=== PATIENT | female | born 1990 | race African-American/Black ===

== ENCOUNTER 2017-07-06 06:34 | Inpatient (IN) | payer MEDICAID, OTHER ==
[2017-07-06] VITALS (48 sets, daily range): BP systolic 88–131; BP diastolic 38–84; PULSE 93–161; RESP 16–18; TEMP 97.8–99.6
[~2017-07-06] VITALS: Ht 152.4 cm; Wt 83.0 kg
[~2017-07-06 06:34] MED LIST: FERRTAB2 PO; PREN1CAP33 PO
[2017-07-06] MEDS ORDERED: LACTATED RINGER'S 1000 ML INJ 1,000 ML IV PRN (07:25)
[2017-07-06] MEDS: LACTATED RINGER'S 1000 ML INJ 1,000 ML IV SCH ×2 (07:25→12:13)
--- NOTE | 2017-07-06 07:25 | PD ---
HPI Chief Complaint Contractions Date Seen: Jul 06, 2017 Time Seen: 07:19 Travel History International Travel<30 Days: No Contact w/Intl Traveler<30Days: No Known Affected Area: No History of Present Illness HPI 26-year-old who is at 38 weeks and 6 days comes in complaining of contractions since 11 PM last night that have worsened in intensity. Patient denies vaginal bleeding or rupture membranes. She is group B strep negative and presently she is obtaining care with the [facility]. Weeks Gestation: 38 Para: 0 : 1 History Past Medical History Medical History: Denies Significant Hx Past Surgical History Surgical History: No Previous Surgery Family History Family History: Negative Social History Alcohol Use: No Tobacco Use: No Substance Abuse: No Allergies-Medications (Allergen,Severity, Reaction): Coded Allergies: No Known Allergies (Verified , 07/04/17) Home Meds Active Scripts Multi-Vit/Iron-Folic [id number] C (Ferralet) 90-1-0.012-120 mg Tab, 1 TAB PO DAILY, #30 BOTTLE 6 Refills Prov:Olga Boles 05/01/17 Vit W/ Fe Polysacch C (Vitafol Fe+ 90-1-200 & 50 mg) 1 Cap Cap, 1 TAB PO DAILY, #30 BOTTLE 11 Refills Prov:Olga Boles 04/11/17 Review of Systems Except as stated in HPI: all other systems reviewed are Neg Physical Exam Narrative GENERAL: Well-nourished, well-developed patient. SKIN: Warm and dry. HEAD: Normocephalic and atraumatic. EYES: No scleral icterus. No injection or drainage. ENT: No nasal drainage noted. Mucous membranes pink. Airway patent. NECK: Supple, trachea midline. No JVD. CARDIOVASCULAR: Regular rate and rhythm without murmurs, gallops, or rubs. RESPIRATORY: Breath sounds equal bilaterally. No accessory muscle use. ABDOMEN/GI: Abdomen soft, non-tender, bowel sounds present, no rebound, no guarding Gravid to [40-] weeks size Fundal Height: [-] GENITOURINARY: External Genitalia: intact and normal in appearance BUS glands: nl Cervix: mid Dilatation: 3-4 Effacement: 100 Station: -2 Presentation: vtx Membranes: [intact Uterine Contractions: q5 min FHT's: Category: 1 Baseline: 140 Reactive: mod Variability: mod Decels: absent EXTREMITIES: No cyanosis or edema. BACK: Nontender without obvious deformity. No CVA tenderness. NEUROLOGICAL: Awake and alert. Motor and sensory grossly within normal limits. Five out of 5 muscle strength in all muscle groups. Normal speech. Data Data Vital Signs Reviewed: Yes Group B Strep: Negative MDM Medical Record Reviewed: Yes Plan 26yo at 38w6d here with regular contractions at 3-4cm Admit to labor Undecided regarding epidural Diagnosis Diagnosis: Primary Impression: 38 weeks gestation of Additional Impression: Slow slope active phase of labor Kiki Martinez MD Jul 06, 2017 07:25
--- NOTE | 2017-07-06 07:28 | HHI.HP ---
History & Physical H&P HPI Chief Complaint Contractions Date Seen: Jul 06, 2017 Time Seen: 07:19 Travel History International Travel<30 Days: No Contact w/Intl Traveler<30Days: No Known Affected Area: No History of Present Illness HPI 26-year-old who is at 38 weeks and 6 days comes in complaining of contractions since 11 PM last night that have worsened in intensity. Patient denies vaginal bleeding or rupture membranes. She is group B strep negative and presently she is obtaining care with the [facility]. Weeks Gestation: 38 Para: 0 : 1 History (Limited) History Past Medical History Medical History: Denies Significant Hx Past Surgical History Surgical History: No Previous Surgery Family History Family History: Negative Social History Alcohol Use: No Tobacco Use: No Substance Abuse: No Allergies-Medications Allergies-Medications (Allergen,Severity, Reaction): Coded Allergies: No Known Allergies (Verified , 07/04/17) Home Meds Active Scripts Multi-Vit/Iron-Folic [id number] C (Ferralet) 90-1-0.012-120 mg Tab, 1 TAB PO DAILY, #30 BOTTLE 6 Refills Prov:Olga Boles 05/01/17 Vit W/ Fe Polysacch C (Vitafol Fe+ 90-1-200 & 50 mg) 1 Cap Cap, 1 TAB PO DAILY, #30 BOTTLE 11 Refills Prov:Olga Boles 04/11/17 ROS Review of Systems Except as stated in HPI: all other systems reviewed are Neg Physical Exam Physical Exam Narrative GENERAL: Well-nourished, well-developed patient. SKIN: Warm and dry. HEAD: Normocephalic and atraumatic. EYES: No scleral icterus. No injection or drainage. ENT: No nasal drainage noted. Mucous membranes pink. Airway patent. NECK: Supple, trachea midline. No JVD. CARDIOVASCULAR: Regular rate and rhythm without murmurs, gallops, or rubs. RESPIRATORY: Breath sounds equal bilaterally. No accessory muscle use. ABDOMEN/GI: Abdomen soft, non-tender, bowel sounds present, no rebound, no guarding Gravid to [40-] weeks size Fundal Height: [-] GENITOURINARY: External Genitalia: intact and normal in appearance BUS glands: nl Cervix: mid Dilatation: 3-4 Effacement: 100 Station: -2 Presentation: vtx Membranes: [intact Uterine Contractions: q5 min FHT's: Category: 1 Baseline: 140 Reactive: mod Variability: mod Decels: absent EXTREMITIES: No cyanosis or edema. BACK: Nontender without obvious deformity. No CVA tenderness. NEUROLOGICAL: Awake and alert. Motor and sensory grossly within normal limits. Five out of 5 muscle strength in all muscle groups. Normal speech. Data Data Data Vital Signs Reviewed: Yes Group B Strep: Negative MDM MDM Medical Record Reviewed: Yes Plan 26yo at 38w6d here with regular contractions at 3-4cm Admit to labor Undecided regarding epidural Diagnosis Diagnosis: Primary Impression: 38 weeks gestation of Additional Impression: Slow slope active phase of labor Kiki Martinez MD Jul 06, 2017 07:28
[2017-07-06] MEDS ORDERED: MINERAL OIL 10 ML VIAL TOPICAL PRN (07:30)
[2017-07-06] MEDS ORDERED: CITRIC ACID-SODIUM CITRATE LIQ 30 ML UDC PO SCH (07:30)
[2017-07-06] MEDS ORDERED: LIDOCAINE HCL 1% 50 ML VIAL I-DERMAL PRN (07:30)
[2017-07-06] MEDS ORDERED: LIDOCAINE HCL 1% 50 ML VIAL INFIL PRN (07:30)
[2017-07-06] MEDS ORDERED: ONDANSETRON HCL 4 MG/2 ML VIAL IV PRN (07:30)
[2017-07-06] MEDS ORDERED: OXYTOCIN 30 UNITS-500ML PREMIX 500 ML IV ONE (07:30)
[2017-07-06] MEDS ORDERED: SODIUM CHLORID 0.9% 500 ML INJ 500 ML IV PRN (07:30)
[2017-07-06] MEDS ORDERED: SODIUM CHLOR 0.9% 1000 ML INJ 1,000 ML IV PRN (07:45)
[2017-07-06 07:56] LABS: BASOPHIL % 0.2 % (0.0-2.0); HEMATOCRIT 35.6 % (35.0-46.0); HEMO FLAGS DIFF FINAL; LYMPH % 9.7 % (9.0-44.0); LYMPHOCYTE # 1.2 TH/MM3 (1.0-4.8); MEAN CORPUSCULAR HEMOGLOBIN 31.4 PG (27.0-34.0); MEAN CORPUSCULAR HGB CONC 33.7 % (32.0-36.0); MONO % 4.2 % (0.0-8.0); NEUT % 85.9 % (16.0-70.0); PLATELET COUNT 302 TH/MM3 (150-450); RED BLOOD COUNT 3.83 MIL/MM3 (4.00-5.30); RED CELL DISTRIBUTION WIDTH 13.4 % (11.6-17.2); WHITE BLOOD COUNT 12.8 TH/MM3 (4.0-11.0)
[2017-07-06] MEDS ORDERED: fentaNYL 2MCG-BUPIV 0.125% 100 ML EPIDURAL SCH (10:30)
[2017-07-06] MEDS ORDERED: ePHEDrine/NS 25 MG/5 ML SYR ONE (10:30)
[2017-07-06] MEDS ORDERED: NO SYSTEM NARCOTICS PRN (10:30)
[2017-07-06] MEDS ORDERED: DO NOT ADMINISTER ANTICOAGULANTS PRN (10:30)
[2017-07-06] MEDS ORDERED: fentaNYL 2MCG-BUPIV 0.125% INJ 100 ML ONE (10:30)
--- NOTE | 2017-07-06 10:40 | PD.LABORPN ---
Subjective Subjective Patient seen and examined. No current complaints. Vital signs stable. AROM performed without complications. Anesthesia notified and patient desires epidural at this time. Continue with routine antepartum care. (Allan Dumont MD R2) Objective Vital Signs Vital Signs Date Time Temp Pulse Resp B/P (MAP) Pulse Ox O2 Delivery O2 Flow Rate FiO2 07/06/17 08:56 101 131/84 (100) 07/06/17 07:00 97.8 Objective Pelvic Exam: Cervix: Midposition Dilatation: 5-6 cm Effacement: 100% Station: -1 Presentation: Vertex Membranes: AROM FHT's: Category: 1 Baseline: 120s Reactive: Positive Variability: Moderate Decels: None Weeks Gestation: 38 Gest Age Assessed Date: Jul 06, 2017 Gest Age Assessed Time: 10:33 Pt started active labor?: Yes Active labor start date: Jul 06, 2017 Active labor start time: 08:00 Medical induction of labor?: No Artificial rupture of membrane: Yes Artificial ROM date: Jul 06, 2017 Artifical ROM time: 10:34 (Allan Dumont MD R2) Assessment/Plan Assessment and Plan 26-year-old who is at 38 weeks and 6 days currently in active labor -Cervical exam: 5-6 cm, 100%, -1 -AROM completed with clear fluid -Patient desires epidural, anesthesia notified -Category 1 heart tracing, reassuring -Patient without complaints -Continue routine antepartum care DW: Dr. Allen (Allan Dumont MD R2) Assessment and Plan Patient seen and evaluated with resident under direct supervision, agree with assessment and plan. (Jose Allen MD) Allan Dumont MD R2 Jul 06, 2017 10:40 Jose Allen MD Jul 06, 2017 10:48
[2017-07-06] MEDS ORDERED: ePHEDrine/NS 25 MG/5 ML SYR IV PRN (11:15)
[2017-07-06 13:12] LABS: BLOOD, URINE NEG (NEG); COMMENT (UR) CULT NOT INDICATED; CULTURE IF INDICATED CULT NOT INDICATED; GLUCOSE,URINE NEG (NEG); KETONE, URINE NEG (NEG); MUCUS URINE FEW /lpf (OCC); NITRITE,URINE NEG (NEG); PH, URINE 6.5 (5.0-8.5); SQUAMOUS EPITHELIAL CELL URINE 2 /hpf (0-5); URINE COLOR YELLOW (YELLW/STRAW)
[2017-07-06] MEDS ORDERED: OXYTOCIN 30 UNITS-500ML PREMIX 500 ML IV SCH ×2 (13:30→15:30)
[2017-07-06] MEDS ORDERED: ONDANSETRON ODT 4 MG TAB PO PRN (15:30)
[2017-07-06] MEDS ORDERED: SODIUM CHLORIDE 0.9% FLUSH 10 ML FLUSH IV FLUSH PRN (15:30)
[2017-07-06] MEDS ORDERED: WITCH HAZEL 50%/GLYCERIN 12.5% 40 PAD JAR TOPICAL PRN (15:30)
[2017-07-06] MEDS ORDERED: ALUMINUM/MAGNESIUM/SIMETH 30 ML CUP PO PRN (15:30)
[2017-07-06] MEDS ORDERED: ZOLPIDEM TARTRATE 5 MG TAB PO PRN (15:30)
[2017-07-06] MEDS ORDERED: DOCUSATE SODIUM 50 MG/SENNA 8.6 MG TAB PO PRN (15:30)
[2017-07-06] MEDS ORDERED: BENZOCAINE 20% TOPICAL SPRAY 60 ML CAN TOPICAL PRN (15:30)
--- NOTE | 2017-07-06 15:32 | PD.OB.DELI ---
Weeks gestation: 38 Gest age assessed date: Jul 06, 2017 Gest age assessed time: 10:33 Pt started active labor?: Yes Active labor start date: Jul 06, 2017 Active labor start time: 08:00 Medical induction of labor?: No Artificial rupture of membrane: Yes Artificial ROM date: Jul 06, 2017 Artifical ROM time: 10:34 Anesthesia: Epidural Episiotomy: None Vaginal Delivery: Normal Presentation: Occiput anterior Nuchal Cord: None Delayed cord clamping (45 sec): Yes Infant: Male Delivery date: Jul 06, 2017 Delivery time: 14:58 One Minute : 4 Five Minute : 9 Weight: 2965g Placenta: Spontaneous delivery Estimated blood loss: Less than 150cc Additional Information Ms. Cowart is a G1 now P1 after without complications. There were no lacerations during . APGARs were 4/9 with tactile stimulation and suctioning. Mother and baby are resting comfortably in room without complaints. SDW: By Dr. Allen (Allan Dumont MD R2) Attestation I attended and assisted with this delivery. (Jose Allen MD) Allan Dumont MD R2 Jul 06, 2017 15:32 Jose Allen MD Jul 06, 2017 18:59
[2017-07-06] MEDS ORDERED: DIPHTH/TETANUS/ACEL PERTUSSIS (BOOSTER) 0.5 ML VIAL/PFS IM ONE (16:00)
[2017-07-06] MEDS ORDERED: MEASLES, MUMPS, RUBELLA VACCINE 0.5 ML VIAL SQ ONE (16:00)
[2017-07-06] MEDS ORDERED: SODIUM CHLORIDE 0.9% FLUSH 10 ML FLUSH IV FLUSH SCH (21:00)
[2017-07-06] MEDS: IBUPROFEN 600 MG TAB PO PRN (21:29)
[2017-07-06] MEDS: ACETAMINOPHEN 325 MG TAB PO PRN (21:29)
[2017-07-07 01:15] VITALS: TEMP 98.4
--- NOTE | 2017-07-07 08:05 | HHI.OB ---
Subjective Post Day: 1 Remarks Pt seen and examined this morning. day # 1 AFVSS overnight. Decreased lochia. Denies dysuria. No breast tenderness. She is feeding the baby via breast. Appetite good. No nausea or vomiting. Patient has not yet had a bowel movement, but does endorse bowel gas. Ambulating well. Denies calf pain or shortness of breath. Otherwise, she is doing well this morning and has no other concerns. (Allan Dumont MD R2) Remarks Patient seen and evaluated with resident under direct supervision, agree with assessment and plan. (Jose Allen MD) Objective Vitals/I&O Vital Signs Date Time Temp Pulse Resp B/P (MAP) Pulse Ox O2 Delivery O2 Flow Rate FiO2 07/07/17 01:15 98.4 07/06/17 23:00 99.6 07/06/17 21:00 98 16 100/63 (75) 07/06/17 21:00 99.0 07/06/17 17:30 98.4 07/06/17 17:30 102 17 120/83 (95) 07/06/17 16:15 112 119/67 (84) 07/06/17 16:01 110 114/67 (83) 07/06/17 15:45 114 120/72 (88) 07/06/17 15:31 113 110/61 (77) 07/06/17 15:17 120 113/38 (63) 07/06/17 15:01 121 126/67 (86) 07/06/17 14:30 137 96/61 (73) 07/06/17 14:00 120 101/63 (76) 07/06/17 13:30 124 115/66 (82) 07/06/17 13:01 127 111/63 (79) 07/06/17 12:45 98.7 18 07/06/17 12:35 125 07/06/17 12:31 135 103/52 (69) 07/06/17 12:30 131 07/06/17 12:10 145 07/06/17 12:05 111 07/06/17 12:00 114 121/67 (85) 07/06/17 12:00 98 07/06/17 11:50 116 07/06/17 11:50 113 113/71 (85) 07/06/17 11:45 110 122/78 (93) 07/06/17 11:45 108 07/06/17 11:41 106 123/75 (91) 07/06/17 11:40 122 07/06/17 11:36 120 111/70 (84) 07/06/17 11:35 114 07/06/17 11:30 114 07/06/17 11:30 133 123/81 (95) 07/06/17 11:26 122 108/77 (87) 07/06/17 11:25 126 07/06/17 11:21 143 124/72 (89) 07/06/17 11:20 117 07/06/17 11:15 139 124/81 (95) 07/06/17 11:15 93 07/06/17 11:11 161 94/74 (81) 07/06/17 11:10 113 07/06/17 11:05 104 07/06/17 11:05 106 103/72 (82) 07/06/17 11:01 108 96/56 (69) 07/06/17 11:00 108 07/06/17 10:55 118 110/68 (82) 07/06/17 10:52 114 90/49 (63) 07/06/17 10:51 116 88/45 (59) 07/06/17 10:50 114 07/06/17 10:46 121 120/82 (95) 07/06/17 10:45 113 07/06/17 10:45 98.1 18 07/06/17 10:41 106 126/81 (96) 07/06/17 10:40 98 07/06/17 10:25 102 118/67 (84) 07/06/17 08:56 101 131/84 (100) Objective Remarks GENERAL: Well-nourished, well-developed patient. CARDIOVASCULAR: Regular rate and rhythm without murmurs, gallops, or rubs. RESPIRATORY: Breath sounds equal bilaterally. No accessory muscle use. ABDOMEN/GI: Abdomen soft, non-tender. Fundus: Firm, non-tender at umbilicus. GENITOURINARY: Light to moderate bleeding. EXTREMITIES: No cyanosis or edema, non-tender, without signs of DVT. Medications and IVs Current Medications Medications (Trade) Dose Ordered Sig/Billie Route Start Time Stop Time Status Last Admin Miscellaneous Information No systemic narcotics to be given except... UNSCH PRN .XX 07/06/17 10:30 07/07/17 10:29 Miscellaneous Information DO NOT ADMINISTER ANY ANTICOAGUL... UNSCH PRN .XX 07/06/17 10:30 07/07/17 10:29 Fentanyl/ Bupivacaine HCl 100 ml @ 0 mls/hr TITRATE EPIDURAL 07/06/17 10:30 (ePHEDrine/NS 25 MG/5 ML SYR) 10 mg UNSCH PRN IV 07/06/17 11:15 07/07/17 11:14 07/06/17 16:03 (NS Flush) 2 ml BID IV FLUSH 07/06/17 21:00 (NS Flush) 2 ml UNSCH PRN IV FLUSH 07/06/17 15:30 (Tylenol) 650 mg Q4H PRN PO 07/06/17 15:30 07/06/17 21:29 (Motrin) 600 mg Q6H PRN PO 07/06/17 15:30 07/06/17 21:29 (Americaine 20% Top Spr) 1 spray Q4H PRN TOPICAL 07/06/17 15:30 07/06/17 21:29 (Tucks Pads) 1 applic QID PRN TOPICAL 07/06/17 15:30 07/06/17 21:29 (Ashlee-Colace) 2 tab Q12H PRN PO 07/06/17 15:30 (Ambien) 5 mg HS PRN PO 07/06/17 15:30 (Mag-Al Plus Susp Liq) 15 ml Q8H PRN PO 07/06/17 15:30 (Zofran Odt) 4 mg Q6H PRN PO 07/06/17 15:30 (Allan Dumont MD R2) Assessment/Plan Problem List: (1) (spontaneous vaginal delivery) ICD Codes: O80 - Encounter for full-term uncomplicated delivery Status: Acute Assessment and Plan 26 y/o female who is day # 1 s/p . -Continue routine care. -Motrin PRN pain. -Encouraged OOB. Advised pelvic rest for 6 wks. -Re: ctrl, she would like to discuss her options further at her follow-up appointment. -Anticipate discharge tomorrow, pending clinical course. dw Dr. Tiffany MD Discharge Planning Tomorrow, pending clinical course (Allan Dumont MD R2) Allan Dumont MD R2 Jul 07, 2017 08:05 Jose Allen MD Jul 07, 2017 09:13
[2017-07-07 08:15] VITALS: BP 119/69; PULSE 73; RESP 18; TEMP 97.9
[2017-07-07] MEDS ORDERED: SENN1TAB PO (15:41)
[2017-07-07] MEDS ORDERED: IBUP-232 PO (15:41)
--- NOTE | 2017-07-07 15:41 | HHI.DCPOC ---
Discharge Care Plan Diagnosis: (1) (spontaneous vaginal delivery) Report Symptoms to Your Doctor -Temperature above 100.5 degrees -Redness, of incision or excessive or foul smelling drainage -Unusual pain or calf pain -Increased vaginal bleeding -Painful or difficulty urinating -Feelings of extreme sadness or anxiety after 2 weeks Goals to Promote Your Health * To prevent worsening of your condition and complications * To maintain your health at the optimal level Directions to Meet Your Goals Take your medications as prescribed Follow your dietary instruction Follow activity as directed Ensure plenty of rest for recovery Drink fluids for hydration Keep your appointments as scheduled Take your immunizations and boosters as scheduled If your symptoms worsen call your PCP, if no PCP go to Urgent Care Center or Emergency Room Smoking is Dangerous to Your Health. Avoid second hand smoke Call the 24-hour crisis hotline for domestic abuse at Allan Dumont MD R2 Jul 07, 2017 15:41
[2017-07-07] MEDS: ACETAMINOPHEN 325 MG TAB PO PRN (17:54)
[2017-07-07] MEDS: IBUPROFEN 600 MG TAB PO PRN (17:55)
[2017-07-07 20:00] VITALS: BP 118/78; PULSE 81; RESP 16; TEMP 98.3
--- NOTE | 2017-07-08 08:29 | HHI.OB ---
Subjective Post Day: 2 Remarks Pt seen and examined this morning. day # 2 AFVSS overnight. Decreased lochia. Denies dysuria. No breast tenderness. Appetite good. No nausea or vomiting. Patient has not yet had a bowel movement. Ambulating well. Denies CP, fever, chills, calf pain or shortness of breath. Otherwise, she is doing well this morning and has no other concerns. Objective Vitals/I&O Vital Signs Date Time Temp Pulse Resp B/P (MAP) Pulse Ox O2 Delivery O2 Flow Rate FiO2 07/07/17 20:00 98.3 81 16 118/78 (91) Objective Remarks GENERAL: Well-nourished, well-developed patient. CARDIOVASCULAR: Regular rate and rhythm without murmurs, gallops, or rubs. RESPIRATORY: Breath sounds equal bilaterally. No accessory muscle use. ABDOMEN/GI: Abdomen soft, non-tender. Fundus: Firm, non-tender at umbilicus. GENITOURINARY: Light to moderate bleeding. EXTREMITIES: No cyanosis or edema, non-tender, without signs of DVT. Medications and IVs Current Medications Medications (Trade) Dose Ordered Sig/Billie Route Start Time Stop Time Status Last Admin Fentanyl/ Bupivacaine HCl 100 ml @ 0 mls/hr TITRATE EPIDURAL 07/06/17 10:30 (NS Flush) 2 ml BID IV FLUSH 07/06/17 21:00 (NS Flush) 2 ml UNSCH PRN IV FLUSH 07/06/17 15:30 (Tylenol) 650 mg Q4H PRN PO 07/06/17 15:30 07/07/17 17:54 (Motrin) 600 mg Q6H PRN PO 07/06/17 15:30 07/07/17 17:55 (Americaine 20% Top Spr) 1 spray Q4H PRN TOPICAL 07/06/17 15:30 07/06/17 21:29 (Tucks Pads) 1 applic QID PRN TOPICAL 07/06/17 15:30 07/06/17 21:29 (Ashlee-Colace) 2 tab Q12H PRN PO 07/06/17 15:30 07/07/17 17:54 (Ambien) 5 mg HS PRN PO 07/06/17 15:30 (Mag-Al Plus Susp Liq) 15 ml Q8H PRN PO 07/06/17 15:30 (Zofran Odt) 4 mg Q6H PRN PO 07/06/17 15:30 Assessment/Plan Problem List: (1) (spontaneous vaginal delivery) ICD Codes: O80 - Encounter for full-term uncomplicated delivery Status: Acute Assessment and Plan 26 y/o female who is day # 2 s/p . -Advised pelvic rest for 6 wks. -Re: ctrl, she would like to discuss her options further at her follow-up appointment. - Discharge today, scripts given for ibuprofen and senna dw Dr. Juan MD Discharge Planning today, 07/08 Toyin Johnson MD R1 Jul 08, 2017 08:29
[2017-07-08 08:30] VITALS: BP 119/83; PULSE 84; RESP 16; TEMP 98.1
== END 2017-07-08 11:48 | disposition home or self-care (01) | DRG 775 ==
LOC: HOBED 06:34 → H2EB 08:06 → H1EA 16:43
PROVIDERS: ADMIT Obstetrics & Gynecology Obstetrics; ATTEND Obstetrics & Gynecology Obstetrics
PROC: 10E0XZZ Delivery of Products of Conception, External Approach (ICD-10-PCS; principal; 2017-07-06)
PROC: 3E0R3CZ (ICD-10-PCS; 2017-07-06)
PROC: 00HU33Z Insertion of Infusion Device into Spinal Canal, Percutaneous Approach (ICD-10-PCS; 2017-07-06)
DX: O80 Encounter for full-term uncomplicated delivery (principal); Z37.0 Single live birth; Z3A.38 38 weeks gestation of pregnancy
CPT/HCPCS: 59025; 81001; 85025; 86592; 86900; 86901; 90715; J2405; J2590; J3010; J7120